=== PATIENT | male | born 1995 | race Caucasian/White ===

== ENCOUNTER 2016-11-22 20:02 | Emergency (ER) | payer MEDICAID ==
[~2016-11-22] VITALS: Ht 175.3 cm; Wt 81.8 kg
[2016-11-22 22:33] LABS: BASOPHILS % 0.8 % (0.0-2.0); EOSINOPHILS % 0.8 % (0.0-5.0); HEMATOCRIT. 51.6 % (42.0-52.0); LYMPHOCYTES % 29.2 % (20.0-50.0); MEAN CORPUSCULAR HGB CONC 34.8 g/dL (31.0-37.0); MEAN CORPUSCULAR VOLUME 91.9 fL (80.0-94.0); MEAN PLATELET VOLUME 9.4 fl (7.4-10.4); MONOCYTES % 10.3 % (2.0-8.0); NEUTROPHILS % 58.9 % (40.0-76.0); PLATELET 252 x1000/uL (130-400); RED BLOOD CELL COUNT 5.61 mill/uL (4.7-6.1); RED CELL DISTRIBUTION WIDTH 12.7 % (11.6-14.6); WHITE BLOOD COUNT 6.6 x1000/uL (4.5-11.0)
[2016-11-22 22:41] LABS: ANION GAP 15; CALCIUM 10.1 mg/dL (8.5-10.1); CARBON DIOXIDE 30 mEq/L (21-32); CHLORIDE 101 mEq/L (98-107); ETHANOL BLOOD < 10 mg/dL; INDEX HEMOLYSI 1 (1-3); INDEX ICTERIC 1 (1-4); INDEX LIPEMIC 1 (1-3); UREA NITROGEN BLOOD 9 mg/dL (7-21)
[2016-11-22 22:47] LABS: ACETAMINOPHEN < 2 ug/mL (10-30); TROPONIN I < 0.02 ng/mL (0.00-0.04); eGFR > 60 mL/min (>60)
[2016-11-22 23:27] LABS: *AMPHETAMINES SCREEN URINE PRESUMTIVE POSITIVE (NEGATIVE); *BARBITURATES SCREEN URINE NEGATIVE (NEGATIVE); *BENZODIAZEPINES SCREEN URINE NEGATIVE (NEGATIVE); *COCAINE SCREEN URINE PRESUMTIVE POSITIVE (NEGATIVE); CANNABINOID URINE SCREEN PRESUMTIVE POSITIVE (NEGATIVE); ECSTASY MDMA SCREEN URINE NEGATIVE (NEGATIVE); METHADONE URINE SCREEN NEGATIVE (NEGATIVE); OPIATES URINE SCREEN NEGATIVE (NEGATIVE); PHENCYCLIDINE URINE SCREEN NEGATIVE (NEGATIVE)
[2016-11-22] MEDS ORDERED: ACETAMINOPHEN 325MG TABLET PO ONE (23:45)
[2016-11-22 23:49] VITALS: BP 128/72
== END 2016-11-22 23:50 | disposition home or self-care (01) ==
LOC: ER 22:17
DX: F19.10 Other psychoactive substance abuse, uncomplicated (principal); R00.2 Palpitations; R07.89 Other chest pain; F17.210 Nicotine dependence, cigarettes, uncomplicated
CPT/HCPCS: 36415; 80048; 80305; 80307; 80329; 84484; 85025; 99284; G0482; 99285

== ENCOUNTER 2018-12-30 13:21 | Emergency (ER) | payer MEDICAID ==
[~2018-12-30] VITALS: Ht 162.6 cm; Wt 84.0 kg
[2018-12-30] MEDS ORDERED: FLUORESCEIN SODIUM 1MG/STRIP OP ONE (16:30)
[2018-12-30] MEDS ORDERED: TETRACAINE 0.5% OPHTH DROPS 4ML OP ONE (16:30)
[2018-12-30] MEDS ORDERED: KETOROLAC 15MG/ML VIAL IM ONE (17:15)
[2018-12-30 17:54] VITALS: BP 118/78
== END 2018-12-30 17:55 | disposition home or self-care (01) ==
LOC: ER 13:21
DX: H57.11 Ocular pain, right eye (principal); H53.141 Visual discomfort, right eye; R20.8 Other disturbances of skin sensation; H53.8 Other visual disturbances; F15.10 Other stimulant abuse, uncomplicated; F17.200 Nicotine dependence, unspecified, uncomplicated
CPT/HCPCS: 96372; 99283; J1885

== ENCOUNTER 2019-05-30 19:34 | Emergency (ER) | payer MEDICAID ==
[~2019-05-30] VITALS: Ht 170.2 cm; Wt 82.0 kg
[2019-05-30] MEDS ORDERED: BACITRACIN ZINC OINT UDPKT TOP ONE (22:45)
[2019-05-30] MEDS ORDERED: LIDOCAINE HCL/PF 1% 10 MG/ML 5ML VIAL IJ ONE (22:45)
[2019-05-31 00:50] VITALS: BP 119/72
== END 2019-05-31 00:51 | disposition home or self-care (01) ==
LOC: ER 19:34
DX: S61.211A Laceration without foreign body of left index finger without damage to nail, initial encounter (principal); S60.511A Abrasion of right hand, initial encounter; W25.XXXA Contact with sharp glass, initial encounter; Y93.89 Activity, other specified; Y92.89 Other specified places as the place of occurrence of the external cause
CPT/HCPCS: 12002; 73130; 99284; J3490; Z7610

== ENCOUNTER 2021-08-03 23:48 | Emergency (ER) | payer MEDICAID ==
[~2021-08-03] VITALS: Ht 175.3 cm; Wt 96.0 kg
[2021-08-04] MEDS ORDERED: IBUPROFEN 800MG TABLET PO ONE
[2021-08-04 00:12] VITALS: BP 94/61
[2021-08-04] MEDS ORDERED: HYDR-4001 MT (01:19)
[2021-08-04] MEDS ORDERED: IBUP-2030 MT (01:19)
== END 2021-08-04 01:54 | disposition home or self-care (01) ==
LOC: ER 23:48
DX: S82.52XA Displaced fracture of medial malleolus of left tibia, initial encounter for closed fracture (principal); S82.422A Displaced transverse fracture of shaft of left fibula, initial encounter for closed fracture; V00.831A Fall from motorized mobility scooter, initial encounter; Y93.89 Activity, other specified; Y92.488 Other paved roadways as the place of occurrence of the external cause; F12.90 Cannabis use, unspecified, uncomplicated
CPT/HCPCS: 29505; 73590; 73610; 99284; L1830

== ENCOUNTER 2024-08-27 18:56 | Emergency (ER) | payer MEDICAID ==
[~2024-08-27] VITALS: Ht 177.8 cm; Wt 96.0 kg
[~2024-08-27 18:56] MED LIST: HYDR-4001 MT; IBUP-2030 MT
[2024-08-27 19:22] VITALS: BP 119/83; PULSE 88; RESP 18; TEMP 98.1; O2SAT 100
== END 2024-08-27 19:50 | disposition home or self-care (01) ==
LOC: ER 18:56
DX: F10.129 Alcohol abuse with intoxication, unspecified (principal); Y90.9 Presence of alcohol in blood, level not specified
CPT/HCPCS: 99283